=== PATIENT | female | born 1940 | race Caucasian/White ===

== ENCOUNTER → 2016-07-26 | Outpatient (CLI) | payer OTHER | LOC: FIMAGING 16:13 | PROVIDERS: ATTEND Physician Assistant Medical | DX: J98.4 Other disorders of lung (principal) ==

== ENCOUNTER → 2016-07-26 | Outpatient (CLI) | payer OTHER | LOC: BHFA 15:15 | PROVIDERS: ATTEND Internal Medicine Cardiovascular Disease | DX: J40 Bronchitis, not specified as acute or chronic (principal) ==

== ENCOUNTER 2016-08-03 15:43 | Emergency (ER) | payer OTHER ==
[2016-08-03 16:01] VITALS: TEMP 98.6
[2016-08-03] MEDS ORDERED: IPRATROPIUM/ALBUTEROL 3 ML DEYVIAL IH ONE (16:08)
--- NOTE | 2016-08-03 16:10 | EDPHY ---
H & P Stated Complaint: cough/sob saw cardiology last week/ekg nl Time Seen by Provider: 08/03/16 15:54 HPI/ROS: Chief complaint: Cough, shortness of breath History of present illness: This is a 76-year-old female with a history of COPD who presents to the emergency department for cough and shortness of breath. Patient reports she has had a cough for the last 2-3 months. She has been treated with multiple rounds of antibiotics but symptoms persist. She states over the last week she has had increasing shortness of breath. It has been persistent. She denies specific precipitating factors. She denies alleviating factors. She denies other associated signs or symptoms including no fevers, no chest pain, no pain or swelling in the legs. She does report she saw her manager scientific, Dr. Isabel Chaudhry last week and had a normal chest x-ray and EKG. Review of systems: A 10 point review of systems was obtained and other than described above was negative - Personal History Current Tetanus/Diphtheria Vaccine: Yes - Medical/Surgical History Hx Asthma: No Hx Chronic Respiratory Disease: Yes Hx Diabetes: No Hx Cardiac Disease: No Hx Renal Disease: No Hx Cirrhosis: No Hx Alcoholism: No Hx HIV/AIDS: No Hx Splenectomy or Spleen Trauma: No Other PMH: htn. hypothyroid. copd-O2 dependent - Social History Smoking Status: Former smoker - Physical Exam Exam: General Appearance: Alert, nontoxic. Eyes: Pupils equal and round no pallor or injection. ENT, Mouth: Mucous membranes moist. Respiratory: No use of accessary muscles or evidence of respiratory distress. Patient is talking in full sentences. Lung sounds are globally diminished with diffuse rhonchi and wheezing. Cardiovascular: Regular rate and rhythm. Gastrointestinal: Abdomen is soft and nontender, no masses, bowel sounds normal. Neurological: Alert and oriented x4. Strength and sensation intact and symmetrical. Skin: Warm and dry, no rashes. Musculoskeletal: Neck is supple nontender. Extremities are symmetrical, full range of motion. Psychiatric: Patient is oriented X 3, there is no agitation. Constitutional: Initial Vital Signs Temperature (C) 37 C 08/03/16 15:47 Heart Rate 80 08/03/16 15:47 Respiratory Rate 20 08/03/16 15:47 Blood Pressure 118/60 08/03/16 15:47 O2 Sat (%) 92 08/03/16 15:47 O2 Delivery Mode Nasal Cannula O2 (L/minute) 4 Allergies/Adverse Reactions: morphine [Morphine] Allergy (Severe, Verified 08/03/16 15:45) "KNIFE STABBING" HEART PAIN ibuprofen [Ibuprofen] Allergy (Intermediate, Verified 08/03/16 15:45) STOMACH UPSET, COLITIS FLARE UP Sulfa (Sulfonamide Antibiotics) Allergy (Intermediate, Verified 08/03/16 15:45) ITCH DAIRY Allergy (Intermediate, Uncoded 04/09/10 10:49) GI UPSET, COLITIS FLARE UP LETTUCE Allergy (Uncoded 04/09/10 10:48) GI UPSET COLITIS FLARE UP Home Medications: Medication Instructions Recorded Atorvastatin Calcium 08/03/16 BIOTIN 08/03/16 Htn Med 08/03/16 Levothyroxine 08/03/16 Ventolin Hfa 08/03/16 predniSONE 40 mg PO DAILY 4 Days 08/03/16 Medical Decision Making - Diagnostics Imaging Results: Imaging Impressions Chest/Thorax CTA 08/03/16 17:02 Impression: 1. No evidence of pulmonary embolic disease. 2. COPD/chronic bronchitis. 3. Evidence of remote granulomatous disease. 4. Suspect coronary arterial calcification. 5. See above report for additional findings. Results called and discussed with JOSEPH Rob on 08/03/2016 at 18:21 ED Course/Re-evaluation: Patient is discussed with my secondary supervising physician Dr. Reji Preciado. Patient presents to the emergency department for persistent cough and trouble breathing. On presentation patient is nontoxic. She is afebrile and vital signs are stable. There is no respiratory distress. Physical exam does reveal diminished lung sounds with diffuse rhonchi and wheezing. Blood studies and EKG unremarkable. Patient has a remote history of thromboembolic disease, CTA is performed and negative for PE. Ultimately I do believe this is a COPD exacerbation. She has not been on steroids in a number of months. I believe she is appropriate for outpatient management. She will be placed on a course of prednisone. She is asked to continue to use her inhaler. Home care is discussed. She is asked to follow up with her primary care doctor this week for recheck. Strict return precautions are given. Patient voiced understanding and agreement with plan. Differential Diagnosis: Included but not limited to COPD exacerbation, bronchitis, pneumonia, pneumothorax, pulmonary embolism, ACS - Data Points Laboratory Results: Laboratory Results 08/03/16 16:15 08/03/16 16:15 08/03/16 08/03/16 16:15 16:15 WBC 7.73 10^3/uL 10^3/uL (3.80-9.50) RBC 4.44 10^6/uL 10^6/uL (4.18-5.33) Hgb 12.8 g/dL g/dL (12.6-16.3) Hct 38.8 % % (38.0-47.0) MCV 87.4 fL fL (81.5-99.8) MCH 28.8 pg pg (27.9-34.1) MCHC 33.0 g/dL g/dL (32.4-36.7) RDW 13.3 % % (11.5-15.2) Plt Count 369 10^3/uL 10^3/uL (150-400) MPV 9.9 fL fL (8.7-11.7) Neut % (Auto) 61.1 % % (39.3-74.2) Lymph % (Auto) 16.3 % % (15.0-45.0) [place] % (Auto) 6.9 % % (4.5-13.0) Eos % (Auto) 14.6 % H % (0.6-7.6) Baso % (Auto) 0.8 % % (0.3-1.7) Nucleat RBC Rel Count 0.0 % % (0.0-0.2) Absolute Neuts (auto) 4.73 10^3/uL 10^3/uL (1.70-6.50) Absolute Lymphs (auto) 1.26 10^3/uL 10^3/uL (1.00-3.00) Absolute Monos (auto) 0.53 10^3/uL 10^3/uL (0.30-0.80) Absolute Eos (auto) 1.13 10^3/uL H 10^3/uL (0.03-0.40) Absolute Basos (auto) 0.06 10^3/uL 10^3/uL (0.02-0.10) Absolute Nucleated RBC 0.00 10^3/uL 10^3/uL (0-0.01) Immature Gran % 0.3 % % (0.0-1.1) Immature Gran # 0.02 10^3/uL 10^3/uL (0.00-0.10) Sodium 140 mEq/L mEq/L (134-144) Potassium 4.0 mEq/L mEq/L (3.5-5.2) Chloride 102 mEq/L mEq/L (97-110) Carbon Dioxide 29 mEq/l mEq/l (22-31) Anion Gap 9 mEq/L mEq/L (8-16) BUN 23 mg/dL mg/dL (7-23) Creatinine 0.9 mg/dL mg/dL (0.6-1.0) Estimated GFR > 60 Glucose 103 mg/dL H mg/dL (70-100) Calcium 9.4 mg/dL mg/dL (8.5-10.4) Troponin I < 0.012 ng/mL ng/mL (0-0.034) NT-Pro-B Natriuret Pep 308 pg/mL H pg/mL (0-125) Medications Given: Discontinued Medications Albuterol/Ipratropium (Duoneb) 3 ml IH EDNOW ONE Stop: 08/03/16 16:09 Last Admin: 08/03/16 16:28 Dose: 3 ml Prednisone (Prednisone) 40 mg PO EDNOW ONE Stop: 08/03/16 19:07 Last Admin: 08/03/16 19:22 Dose: 40 mg Departure - Departure Disposition: Home, Routine, Self-Care Clinical Impression: COPD (chronic obstructive pulmonary disease) Qualifiers: COPD type: unspecified COPD Qualified Code(s): J44.9 - Chronic obstructive pulmonary disease, unspecified Condition: Good Instructions: Prednisone (By mouth), COPD (Chronic Obstructive Pulmonary Disease) (ED) Additional Instructions: Follow-up with your primary care doctor in the next 1-2 days for recheck. If symptoms worsen or new symptoms develop, return to the emergency room for recheck. Referrals: Leonie Monroy MD [Primary Care Provider] - As per Instructions Prescriptions: predniSONE 40 mg PO DAILY 4 Days
--- NOTE | 2016-08-03 16:23 | CPEKG ---
Heart Rate: 68 RR Interval: 882 P-R Interval: 148 QRSD Interval: 86 QT Interval: 440 QTC Interval: 469 P [place]: 67 QRS [place]: 80 T Wave [place]: 73 EKG Severity - NORMAL ECG - EKG Impression: SINUS RHYTHM Electronically Signed By: Roel Villalba 04-Aug-2016 23:55:23
[2016-08-03 16:29] LABS: % IMMATURE GRANULYOCYTES 0.3 % (0.0-1.1); ABSOLUTE IMMATURE GRANULOCYTES 0.02 10^3/uL (0.00-0.10); ADD DIFF? NO; ADD MORPH? NO; ADD SCAN? NO; ATYPICAL LYMPHOCYTE FLAG 0 (0-99); FRAGMENT RBC FLAG 0 (0-99); HEMATOCRIT 38.8 % (38.0-47.0); HEMOGLOBIN 12.8 g/dL (12.6-16.3); LEFT SHIFT FLG 0 (0-99); LIPEMIA HEMOLYSIS FLAG 80 (0-99); MEAN CELL HEMOGLOBIN 28.8 pg (27.9-34.1); MEAN CELL VOLUME 87.4 fL (81.5-99.8); MEAN PLATELET VOLUME 9.9 fL (8.7-11.7); PLATELET CLUMPS FLAG 10 (0-99); PLATELET COUNT 369 10^3/uL (150-400); RED BLOOD CELL COUNT 4.44 10^6/uL (4.18-5.33); RED CELL DISTRIBUTION WIDTH 13.3 % (11.5-15.2)
[2016-08-03 16:58] LABS: ANION GAP 9 mEq/L (8-16); CALCIUM 9.4 mg/dL (8.5-10.4); CARBON DIOXIDE 29 mEq/l (22-31); CHLORIDE 102 mEq/L (97-110); CREATININE 0.9 mg/dL (0.6-1.0); GLOMERULAR FILTRATION RATE > 60; GLUCOSE 103 mg/dL (70-100); SODIUM 140 mEq/L (134-144)
[2016-08-03 17:09] LABS: TROPONIN I < 0.012 ng/mL (0-0.034)
[2016-08-03] MEDS ORDERED: IOPAMIDOL (ISOVUE 370) 100 ML BTL IV ONE (17:09)
[2016-08-03 18:52] VITALS: RESP 16
[2016-08-03 18:54] VITALS: BP 135/55; PULSE 70; O2SAT 94
[2016-08-03] MEDS ORDERED: predniSONE 20 MG TAB PO ONE (19:06)
== END 2016-08-03 19:20 | disposition home or self-care (01) ==
DX: J44.9 Chronic obstructive pulmonary disease, unspecified (principal); I10 Essential (primary) hypertension; Z87.891 Personal history of nicotine dependence
CPT/HCPCS: 71275; 93005; 99285; Q9967

== ENCOUNTER → 2016-08-11 | Outpatient (CLI) | payer OTHER | LOC: FIMAGING 12:27 | DX: Z12.31 Encounter for screening mammogram for malignant neoplasm of breast (principal) | CPT/HCPCS: G0202 ==

== ENCOUNTER → 2017-08-29 | Outpatient (CLI) | payer OTHER | LOC: FIMAGING 12:07 | PROVIDERS: ATTEND Family Medicine | DX: Z12.31 Encounter for screening mammogram for malignant neoplasm of breast (principal) ==

== ENCOUNTER → 2017-09-22 | Outpatient (CLI) | payer OTHER | LOC: FIMAGING 13:04 | PROVIDERS: ATTEND Family Medicine | DX: Z13.820 Encounter for screening for osteoporosis (principal); M85.89 Other specified disorders of bone density and structure, multiple sites ==

== ENCOUNTER → 2018-08-29 | Outpatient (CLI) | payer OTHER | LOC: FIMAGING 12:24 | PROVIDERS: ATTEND Family Medicine | DX: Z12.31 Encounter for screening mammogram for malignant neoplasm of breast (principal) ==